=== PATIENT | male | born 1955 | race Two or more races ===

== ENCOUNTER 2018-01-02 12:17 | Emergency (ER) | payer OTHER ==
[~2018-01-02] VITALS: Ht 167.6 cm; Wt 81.6 kg
--- NOTE | 2018-01-02 15:13 | Diagnostic Imaging Report ---
Indication: Pain, trauma, right eyebrow laceration Technique: Continuous helical CT scanning of the head was performed without intravenous contrast material. Axial and coronal 5 mm sections were generated. Radiation dose was minimized using automated exposure control Dose: Total Dose Length Product - DLP 1706.[address] Dose Index - CTDIvol(s) 70.38,17.65 mGy. Comparison: none Findings: The ventricular system is normal in size and configuration. There is no shift of midline structures. No abnormal extra-axial fluid collections are noted. There is no evidence of intracerebral bleeding. No other abnormal high or low density areas are noted within the brain. There is a parenchymal calcification within the right posterior frontal cortex. The ordonez-white differentiation is normal. Visualized orbits and sinuses are unremarkable. The calvarium is intact Impression: Normal CT scan of the head without contrast material. The CT scanner at [facility] is accredited by the [employer] and the scans are performed using protocols designed to limit radiation exposure to as low as reasonably achievable to attain images of sufficient resolution adequate for diagnostic evaluation.
[2018-01-02] MEDS ORDERED: Norco 5mg/325mg tab ORAL ONE (15:15)
--- NOTE | 2018-01-02 15:15 | Diagnostic Imaging Report ---
Indication: Pain, status post fall Technique: Spiral acquisitions obtained through the cervical spine. No IV contrast utilized. Multiplanar reconstructions were generated. Total dose length product 1706.34 mGycm. CTDIvol(s) 70.38,17.65 mGy. Dose reduction achieved using automated exposure control. Comparison: none Findings: No prevertebral soft tissue swelling. Bony alignment is normal. Vertebral body heights are preserved. Disc spaces are preserved. No acute fractures. No dislocations. No significant disc bulge or protrusion, spinal stenosis, or neural foraminal narrowing. The included extraspinal soft tissues are unremarkable Impression: Negative The CT scanner at [facility] is accredited by the [employer] and the scans are performed using protocols designed to limit radiation exposure to as low as reasonably achievable to attain images of sufficient resolution adequate for diagnostic evaluation.
[2018-01-02] MEDS ORDERED: NORCO 5-325 TA1 EACH ORAL (15:40)
[2018-01-02 15:44] VITALS: BP 138/70
--- NOTE | 2018-01-07 23:21 | Emergency Room Report ---
History of Present Illness General Chief Complaint: Head, Face, Neck Trauma Source: Patient Present Illness HPI Patient's a 62-year-old male presented after recent fall. Patient had a laceration to his eyebrow. Patient had not been having any visual changes. Patient had no recent fever. Injury occurred approximately 2 days prior to arrival. Allergies: Coded Allergies: No Known Allergies (Unverified , 01/02/18) Patient History Past Medical History: see triage record Reviewed Nursing Documentation: PMH: Agreed, PSxH: Agreed Nursing Documentation-PMH Past Medical History: No History, Except For Hx Diabetes: Yes - borderline Review of Systems All Other Systems: negative except mentioned in HPI Physical Exam Vital Signs Date Time Temp Pulse Resp B/P (MAP) Pulse Ox O2 Delivery O2 Flow Rate FiO2 01/02/18 12:43 98.5 91 17 144/91 95 Room Air 98.4 Sp02 EP Interpretation: reviewed, normal General Appearance: normal inspection, well appearing, no apparent distress, alert Head: atraumatic ENT: normal ENT inspection, hearing grossly normal, normal voice Neck: normal inspection, full range of motion, supple, no bony tend Respiratory: normal inspection, lungs clear, normal breath sounds, no respiratory distress, no retraction, no wheezing Cardiovascular #1: regular rate, rhythm, no edema Gastrointestinal: normal inspection, normal bowel sounds, non tender, soft, no guarding, no hernia Genitourinary: no CVA tenderness Musculoskeletal: normal inspection, back normal, normal range of motion Neurologic: normal inspection, alert, responsive, speech normal Psychiatric: normal inspection, judgement/insight normal, mood/affect normal Skin: no rash, abrasions Medical Decision Making Diagnostic Impression: Primary Impression: Head injury Additional Impression: Shoulder contusion ER Course Patient presented for headache. Differential diagnoses included but was not limited to skull fracture, subarachnoid hemorrhage, meningitis, aneurysm, mass lesion, intracranial hemorrhage.Because of complexity of patient's case imaging studies were ordered. CT imaging of the cervical spine read by radiology showed degenerative changes without evident fracture CT head read by radiologist showed no evidence of acute hemorrhage or CVA. The patient is advised to follow up with primary care doctor in 1-2 days. Patient is advised to return if any worsening condition or if any changes in status that are concerning. This report is dictated with [employer] assistant software which may occasionally lead to discrepancies related to use of this software. Last Vital Signs Date Time Temp Pulse Resp B/P (MAP) Pulse Ox O2 Delivery O2 Flow Rate FiO2 01/02/18 15:44 97.9 66 20 138/70 97 Room Air 209.3 Status: improved Disposition: HOME, SELF-CARE Condition: Stable Scripts Hydrocodone Bit/Acetaminophen 5-325* (NORCO 5-325*) 1 Each Tablet 1 TAB ORAL Q6H Y for For Pain, #20 TAB 0 Refills Prov: Juan Pablo Brown 01/02/18 Patient Instructions: Head Injury, Adult Juan Pablo Brown Jan 07, 2018 23:21
== END 2018-01-02 15:44 | disposition home or self-care (01) ==
LOC: EMR 12:59
DX: S09.8XXA Other specified injuries of head, initial encounter (principal); S40.019A Contusion of unspecified shoulder, initial encounter; X58.XXXA Exposure to other specified factors, initial encounter; Y92.9 Unspecified place or not applicable; E11.9 Type 2 diabetes mellitus without complications; R51 Headache
CPT/HCPCS: 70450; 72125; 99284